=== PATIENT | female | born 2000 | race Two or more races ===

== ENCOUNTER 2020-02-08 08:30 | Day surgery (SDC) | payer MEDICAID ==
[~2020-02-08 08:30] MED LIST: FENTANYL CITRATE INJ/PF 100 MCG/2 ML AMPUL ONE; KETOROLAC TROMETHAMINE 60 MG/2 ML SDV ONE; MIDAZOLAM 2 MG/2 ML INJ ONE; ONDANSETRON HCL INJ/PF 4 MG/2 ML SDV ONE; PROPOFOL INJ 200 MG/20 ML VIAL IV ONE
[2020-02-08] MEDS ORDERED: DOXYCYCLINE HYCLATE 100 MG in DEXTROSE 5%-WATER 250 ML IV PRN (09:04)
[2020-02-08] MEDS ORDERED: DIPHENHYDRAMINE HCL 50 MG/ML VIAL IV PRN (09:39)
[2020-02-08] MEDS ORDERED: FENTANYL CITRATE INJ/PF 100 MCG/2 ML AMPUL IV PRN ×2 (09:39)
[2020-02-08] MEDS ORDERED: MORPHINE SULFATE 10 MG/ML INJ IV PRN (09:39)
[2020-02-08] MEDS ORDERED: OXYCODONE-ACETAMINOPHEN 5-325 MG TABLET PO PRN ×2 (09:55)
[2020-02-08] MEDS ORDERED: IBUPROFEN 800 MG TABLET PO PRN (09:55)
[2020-02-08] MEDS ORDERED: KETOROLAC TROMETHAMINE INJ/PF 30 MG/1 ML SDV IV PRN (09:55)
[2020-02-08] MEDS ORDERED: RINGERS SOLUTION,LACTATED 1,000 ML IV PRN (09:55)
--- NOTE | 2020-02-08 10:00 | Operative Report ---
Operative Report DATE OF SURGERY: 02/08/20 PREOPERATIVE DIAGNOSIS: Blighted ovum POSTOPERATIVE DIAGNOSIS: Same OPERATION: Suction D&C SURGEON: KARSON CHAN ANESTHESIA: Moderate Sedation TISSUE REMOVED OR ALTERED: Uterine contents COMPLICATIONS: None ESTIMATED BLOOD LOSS: 50 cc INTRAOPERATIVE FINDINGS: Uterus sounded to 10 cm before the case and 8 cm afterwards PROCEDURE: Patient was taken the OR placed in supine position. Anesthesia was induced. She was placed in dorsolithotomy position using Amadeo stirrups. Her perineum and vagina were prepared and draped in a sterile fashion. She had just voided and not did not need catheterization. A weighted speculum was placed in the vagina and the anterior lip of the cervix was grasped with a tenaculum. The uterus sounded to 10 cm. The cervix was gently dilated. Next a size 8 curette was used to evacuate the uterine contents. At the end of the case a gentle sharp curette was used to explore the uterus no retained products were noted. Sound at the end of the case was 8 cm. There was a slight laceration to the cervix from the tenaculum and this was closed with a interrupted 3-0 chromic stitch. Bleeding was minimal at this point all instruments were removed. She is placed back in supine position taken to recovery in stable condition.
[2020-02-08] MEDS ORDERED: KETOROLAC TROMETHAMINE INJ/PF 30 MG/1 ML SDV ONE (10:35)
[2020-02-08 13:04] VITALS: BP 109/67
--- NOTE | 2020-03-10 14:12 | Discharge Summary ---
Discharge Summary (SDC) - Discharge Final Diagnosis: Blighted ovum Date of Surgery: 02/08/20 Discharge Date: 02/08/20 Condition: Good Forms: ASU Anesthesia D/C Instruction, Discharge POC-Surgical Service Treatment or Instructions: Home to rest. Pelvic rest. Follow-up in the office as planned. DIET TOLERATED VAGINAL BLEEDING AND SPOTTING IS NORMAL. HOWEVER, IF YOU FILL A SANITARY PAD E VERY HOUR THAT IS TOO MUCH BLEEDING, PLEASE COME TO THE EMERGENCY ROOM TO BE EVALUATED Referrals: KARSON CHAN MD [ACTIVE STAFF] - Respiratory Treatments at Home: Deep Breathing/Coughing Discharge Activity: Balance Activity w/Rest, Pelvic Rest, No tub bath Home Care Assistance: None Needed, Provided by Family Report the Following to Your Physician Immediately: Shortness of Breath, Nausea, Vomiting, Increase in Pain, Fever over 101 Degrees, Unusual Bleeding, Redness, S welling, Increased Soreness, Drainage-Turner, Drainage-Green, Drainage-Foul Smelling, Increased Vaginal Bleed, Large Clots, Numbness, Tingling Sensation, Wheezing, Seizure, IV Site Infection Signs
== END 2020-02-08 11:40 | disposition home or self-care (01) ==
LOC: OROUT 08:30
PROVIDERS: ATTEND Obstetrics & Gynecology
DX: O02.1 Missed abortion (principal)
CPT/HCPCS: 88305 ×2; 01965; 59820; J2250; J3490; J1885 ×2; J3010; J2405; J7060; J2704; 1965

== ENCOUNTER 2020-02-11 05:01 | Emergency (ER) | payer SELFPAY ==
[2020-02-11] MEDS ORDERED: ACETAMINOPHEN 325 MG TABLET PO ONE (05:39)
[2020-02-11] MEDS ORDERED: NORMAL SALINE 1000 ML 1,000 ML IV ONE (05:39)
--- NOTE | 2020-02-11 05:45 | ER Document Report ---
ED Medical Screen (RME) - General Chief Complaint: Post Surgical Pain Stated Complaint: FEVER/POST OP PAIN Time Seen by Provider: 02/11/20 05:26 Primary Care Provider: AMBROSIO GOULD MD [Primary Care Provider] - Follow up as needed Notes: 20 year old underwent D and C by Dr. Hooker 02/07 here for missed Ab with blighted ovum. She developed a low grade temperature - about 100 yesterday -and has had some increasing lower abd pain over the last day. No dysuria. Mild vaginal bleeding. 1 episode of vomiting 02/08, but none since. - Related Data Allergies/Adverse Reactions: No Known Allergies Allergy (Unverified 02/08/20 08:41) Past Medical History - Past Medical History Cardiac Medical History: Denies: Hx Coronary Artery Disease, Hx Heart Attack, Hx Hypertension Pulmonary Medical History: Denies: Hx Asthma, Hx Bronchitis, Hx COPD, Hx Pneumonia Neurological Medical History: Denies: Hx Cerebrovascular Accident, Hx Seizures Musculoskeltal Medical History: Denies Hx Arthritis - Immunizations Hx Diphtheria, Pertussis, Tetanus Vaccination: No Review of Systems - Review of Systems Constitutional: Fever EENT: No symptoms reported Cardiovascular: No symptoms reported Respiratory: No symptoms reported Gastrointestinal: See HPI, Abdominal pain. denies: No symptoms reported Genitourinary: No symptoms reported Female Genitourinary: No symptoms reported Musculoskeletal: No symptoms reported Skin: No symptoms reported Hematologic/Lymphatic: No symptoms reported Neurological/Psychological: No symptoms reported Physical Exam - Vital signs Vitals: Temp Pulse Resp BP Pulse Ox 99.1 F 120 H 20 118/73 95 02/11/20 05:07 02/11/20 05:07 02/11/20 05:07 02/11/20 05:07 02/11/20 05:07 - Abdominal Inspection: Normal Bowel sounds: Normal Tenderness: Tender Course - Re-evaluation Re-evalutation: 02/11/20 05:45 Labs and IVF fluids oredered. Pending at this time. A comprehensive exam is to follow as only RME was done at this time. - Vital Signs Vital signs: Temp Pulse Resp BP Pulse Ox 99.1 F 120 H 20 118/73 95 02/11/20 05:07 02/11/20 05:07 02/11/20 05:07 02/11/20 05:07 02/11/20 05:07 Doctor's Discharge - Discharge Referrals: AMBROSIO GOULD MD [Primary Care Provider] - Follow up as needed
[2020-02-11 06:35] LABS: APPEARANCE,URINE CLEAR; BILIRUBIN,URINE NEGATIVE (NEGATIVE); COLOR,URINE YELLOW; GLUCOSE, URINE NEGATIVE (NEGATIVE); KETONES,URINE NEGATIVE (NEGATIVE); LEUKOCYTE ESTERASE,URINE NEGATIVE (NEGATIVE); NITRITE,URINE NEGATIVE (NEGATIVE); PROTEIN,URINE NEGATIVE (NEGATIVE); URINE SPECIFIC GRAVITY 1.012; UROBILINOGEN,URINE NEGATIVE mg/dL (<2.0)
[2020-02-11 06:48] LABS: ABSOLUTE LYMPHOCYTES (AUTO) 1.3 10^3/uL (0.5-4.7); ABSOLUTE MONOCYTES (AUTO) 0.6 10^3/uL (0.1-1.4); ABSOLUTE NEUT (AUTO) 5.4 10^3/uL (1.7-8.2); BASOPHILS % (AUTO) 0.6 % (0-2); EOSINOPHILS % (AUTO) 0.4 % (0-6); HEMATOCRIT 32.4 % (36.0-47.0); HEMOGLOBIN 11.3 g/dL (12.0-15.5); LYMPHOCYTES % (AUTO) 17.8 % (13-45); MEAN CORPUSCULAR HEMOGLOBIN 30.9 pg (27.0-33.4); MEAN CORPUSCULAR VOLUME 89 fl (80-97); MONOCYTES % (AUTO) 7.8 % (3-13); PLATELET COUNT 202 10^3/uL (150-450); RED BLOOD COUNT 3.66 10^6/uL (3.72-5.28); RED CELL DISTRIBUTION WIDTH 13.7 % (11.5-14.0); SEGMENTED NEUTROPHILS % (AUTO) 73.4 % (42-78); TOTAL CELLS COUNTED % (AUTO) 100 %; WHITE BLOOD COUNT 7.3 10^3/uL (4.0-10.5)
--- NOTE | 2020-02-11 08:02 | RADIOLOGY REPORT (SQ) ---
Ultrasound pelvis on 02/11/2020 at 7:24 AM CLINICAL INDICATION: Three days status post D&C for blighted ovum COMPARISON: 01/28/2020 FINDINGS: Multiple sonographic images are obtained throughout the pelvis by transabdominal approach only, both transverse and sagittal images are obtained. Uterus measures approximately 10.0 x 6.5 x 7.9 cm. The endometrium appears significantly thickened measuring up to 4.8 cm in diameter with a large amount of apparent blood and clot in the endometrium. No flow is visualized within this to suggest retained products of conception. Recommend gynecology follow-up. The right ovary measures approximately 3.6 x 2.6 x 2.1 cm. Left ovary is not visualized. No adnexal mass or fluid collection is noted. No free fluid is noted. IMPRESSION: Large heterogeneous thickened endometrium filled with apparent large amount of blood and clot. No definite retained products of conception noted. Recommend gynecologic follow-up.
[2020-02-11 08:23] LABS: ALBUMIN 3.8 g/dL (3.5-5.0); ALKALINE PHOSPHATASE 49 U/L (38-126); ANION GAP 9 (5-19); ASPARTATE AMINO TRANSFERASE 20 U/L (14-36); BILIRUBIN,TOTAL 0.6 mg/dL (0.2-1.3); BLOOD UREA NITROGEN 6 mg/dL (7-20); CALCIUM 8.5 mg/dL (8.4-10.2); CARBON DIOXIDE 21 mmol/L (22-30); CHLORIDE 104 mmol/L (98-107); GLUCOSE 95 mg/dL (75-110); POTASSIUM 3.5 mmol/L (3.6-5.0)
[2020-02-11] MEDS ORDERED: TRAMADOL HCL 50 MG TABLET PO ONE (09:34)
--- NOTE | 2020-02-11 10:05 | ER Document Report ---
Entered by MARIA EUGENIA BAEZ SCRIBE 02/11/20 0629 Acting as scribe for:JOHN ZAMORA MD ED General - General Chief Complaint: Abdominal Pain Stated Complaint: FEVER/POST OP PAIN Time Seen by Provider: 02/11/20 05:26 Primary Care Provider: AMBROSIO GOULD MD [Primary Care Provider] - Follow up as needed Information source: Patient Notes: This 20-year-old female ( P:0 A:1) presents to the emergency department complaining of abdominal pain that began yesterday. Patient describes the pain as 7/10 and cramping in her suprapubic region. Patient reports fever yesterday, constipation for three days and mild vaginal bleeding. Patient explains that she has not had any issues with constipations prior to the D&C. Patient did not take any medication for her abdominal pain or fever. Patient denies nausea, vomiting and dysuria. Patient had a D&C by Dr. Hooker three days ago. - Related Data Allergies/Adverse Reactions: No Known Allergies Allergy (Unverified 02/08/20 08:41) Past Medical History - General Information source: Patient - Social History Smoking Status: Never Smoker Cigarette use (# per day): No Chew tobacco use (# tins/day): No Frequency of alcohol use: None Drug Abuse: None Lives with: Family Family History: Reviewed & Not Pertinent Patient has homicidal ideation: No Musculoskeletal Medical History: Reports Other - Athrogryposis Psychiatric Medical History: Reports: Hx Anxiety Past Surgical History: Reports: Hx Dilation and Curettage - 02/08/2020, Hx Orthopedic Surgery - Feet X4 - Immunizations Hx Diphtheria, Pertussis, Tetanus Vaccination: No Review of Systems - Review of Systems Constitutional: See HPI, Fever EENT: No symptoms reported Cardiovascular: No symptoms reported Respiratory: No symptoms reported Gastrointestinal: See HPI, Abdominal pain, Constipation. denies: Nausea, Vomiting Genitourinary: See HPI. denies: Dysuria Female Genitourinary: See HPI, Vaginal bleeding Musculoskeletal: No symptoms reported Skin: No symptoms reported Hematologic/Lymphatic: No symptoms reported Neurological/Psychological: No symptoms reported -: Yes All other systems reviewed and negative Physical Exam - Vital signs Vitals: Temp 99.1 F 02/11/20 05:02 - Notes Notes: Physical Exam: General: Alert, appears small framed. HEENT: Normocephalic. Atraumatic. PERRL. Extraocular movements intact. Oropharynx clear. Neck: Supple. Non-tender. Respiratory: No respiratory distress. Clear and equal breath sounds bilaterally. Cardiovascular: Regular rate and rhythm. Abdominal: Normal Inspection. Non-tender. No distension. Normal Bowel Sounds. Back: No gross abnormalities. Extremities: Moves all four extremities. Upper extremities: Normal ROM. Flexion of wrist and hands from deformity. Lower extremities: Normal inspection. No edema. Normal ROM. Neurological: Normal cognition. AAOx4. Normal speech. Psychological: Normal affect. Normal Mood. Skin: Warm. Dry. Normal color. Course - Re-evaluation Re-evalutation: 02/11/20 09:35 Patient resting pending results at this time. No signs of distress except patient complains of pain in the area of her pelvic region. 02/11/20 10:[address] drummond have the on-call information security officer and he recommend patient can be followed up as an outpatient. - Vital Signs Vital signs: Temp Pulse Resp BP Pulse Ox 98.4 F 120 H 20 103/67 98 02/11/20 08:02 02/11/20 05:07 02/11/20 09:01 02/11/20 09:00 02/11/20 09:01 02/11/20 09:36 20 current vital signs shows a heart rate of 90 - Laboratory Result Diagrams: 02/11/20 06:28 02/11/20 07:46 Laboratory results interpreted by me: 02/11/20 02/11/20 02/11/20 05:30 06:28 06:28 RBC 3.66 L Hgb 11.3 L Hct 32.4 L Sodium Potassium Carbon Dioxide BUN Creatinine Lactic Acid 0.6 L Beta HCG, Quant Urine Blood LARGE H 02/11/20 07:46 RBC Hgb Hct Sodium 134.1 L Potassium 3.5 L Carbon Dioxide 21 L BUN 6 L Creatinine 0.21 L Lactic Acid Beta HCG, Quant 4803.60 H Urine Blood Laboratories does not disclose any acute process. Patient is status post DNC 3 days ago. Patient also has a large amount of blood which is contaminant from her procedure. - Diagnostic Test Radiology reviewed: Image reviewed, Reports reviewed Radiology results interpreted by me: 02/11/20 09:37 Ultrasound shows a heterogeneous clot in the uterus with endometrial thickening no other acute process. Discharge - Discharge Clinical Impression: Postoperative pain, Blighted ovum Condition: Stable Disposition: HOME, SELF-CARE Additional Instructions: You have postop pain from having a D&C due to a blighted ovum. Your work-up today does not disclose any acute process of any complication of your surgery. Plan is to start you on some tramadol for today and further follow-up with Dr. Hooker as you have an appointment already in place. Prescriptions: Tramadol HCl [Ultram 50 mg Tablet] 50 mg PO ASDIR PRN #4 tab PRN Reason: Referrals: AMBROSIO GOULD MD [Primary Care Provider] - Follow up as needed KARSON HOOKER MD [ACTIVE STAFF] - Follow up tomorrow I personally performed the services described in the documentation, reviewed and edited the documentation which was dictated to the scribe in my presence, and it accurately records my words and actions.
[2020-02-11 10:53] VITALS: BP 113/64
== END 2020-02-11 10:23 | disposition home or self-care (01) ==
LOC: ER 05:01
DX: G89.28 Other chronic postprocedural pain (principal); R10.2 Pelvic and perineal pain; O02.0 Blighted ovum and nonhydatidiform mole; K59.00 Constipation, unspecified; R50.9 Fever, unspecified
CPT/HCPCS: 99284; 36415; 87040; 84702; 83605; 85025; 80053; 81001; 76856; 93976; J7030

== ENCOUNTER 2020-09-07 17:02 | Outpatient (CLI) | payer SELFPAY ==
[2020-09-07 18:42] LABS: APPEARANCE,URINE CLEAR; BILIRUBIN,URINE NEGATIVE (NEGATIVE); COLOR,URINE STRAW; GLUCOSE, URINE NEGATIVE (NEGATIVE); KETONES,URINE NEGATIVE (NEGATIVE); LEUKOCYTE ESTERASE,URINE SMALL (NEGATIVE); NITRITE,URINE NEGATIVE (NEGATIVE); PROTEIN,URINE NEGATIVE (NEGATIVE); URINE SPECIFIC GRAVITY 1.012; UROBILINOGEN,URINE NEGATIVE mg/dL (<2.0)
[2020-09-07 19:02] LABS: URINE AMPHETAMINES SCREEN NEGATIVE; URINE BARBITURATES SCREEN NEGATIVE; URINE BENZODIAZEPINES SCREEN NEGATIVE; URINE COCAINE SCREEN NEGATIVE; URINE MARIJUANA (THC) SCREEN NEGATIVE; URINE METHADONE SCREEN NEGATIVE; URINE PHENCYCLIDINE SCREEN NEGATIVE
[2020-09-07] MEDS ORDERED: ACETAMINOPHEN 325 MG TABLET PO ONE (19:57)
[2020-09-07] MEDS ORDERED: ACETAMINOPHEN 325 MG TABLET ONE (20:06)
--- NOTE | 2020-09-07 20:40 | RADIOLOGY REPORT (SQ) ---
EXAM DESCRIPTION: US LIMITED COMPLETED DATE/TME: 09/07/2020 19:41 CLINICAL HISTORY: 20 years, Female, Cervical length COMPARISON: None. TECHNIQUE: LIMITATIONS: None. FINDINGS: A limited ultrasound was performed to determine cervical length. There is a live IUP in vertex presentation. cardiac activity was measured at 137 bpm. The cervix measures 2.9 cm in length and is closed. The placenta is anterior in location, with no evidence of abruption or previa. There is a normal amount of amniotic fluid. IMPRESSION: Live IUP. The cervix measures 2.9 cm in length and is closed. copyright 2010 [employer]- All Rights Reserved
== END 2020-09-07 20:20 | disposition home or self-care (01) ==
LOC: LC 17:02
PROVIDERS: ATTEND Obstetrics & Gynecology
DX: O99.891 Other specified diseases and conditions complicating pregnancy (principal); M54.9 Dorsalgia, unspecified; Z3A.21 21 weeks gestation of pregnancy
CPT/HCPCS: 76815; 80307; 81001